=== PATIENT | male | born 1975 | race Caucasian/White ===

== ENCOUNTER → 2023-09-11 11:43 | Outpatient (REF) | payer OTHER, SELFPAY | LOC: RAD 11:43 | PROVIDERS: ATTENDING PHYSICIAN Physician Assistant Medical | DX: R10.10 Upper abdominal pain, unspecified (principal); R19.7 Diarrhea, unspecified | CPT/HCPCS: 74177; Q9967 ==

== ENCOUNTER 2024-11-24 06:15 | Day surgery (SDC) | payer BC, SELFPAY | END 2024-11-24 10:48 | disposition home or self-care (01) | LOC: GI 06:15 | PROVIDERS: ATTENDING PHYSICIAN Internal Medicine Gastroenterology | DX: Z12.11 Encounter for screening for malignant neoplasm of colon (principal); K57.30 Diverticulosis of large intestine without perforation or abscess without bleeding; K64.8 Other hemorrhoids; D12.0 Benign neoplasm of cecum; D12.2 Benign neoplasm of ascending colon; K63.5 Polyp of colon | CPT/HCPCS: 45385; 88305 ==

== ENCOUNTER → 2025-02-09 10:09 | Outpatient (REF) | payer BC, SELFPAY | LOC: MRI 3T 10:09 | PROVIDERS: ATTENDING PHYSICIAN Physician Assistant Medical | DX: M54.31 Sciatica, right side (principal) | CPT/HCPCS: 72148 ==